=== PATIENT | female | born 1990 | race African-American/Black ===

== ENCOUNTER 2020-07-06 11:00 | Emergency (ER) | payer OTHER ==
[~2020-07-06] VITALS: Ht 160 cm; Wt 86.0 kg
[2020-07-06] MEDS ORDERED: KETOROLAC TROMETHAMINE 10 MG TABLET PO ONE (11:45)
[2020-07-06 13:01] VITALS: BP 116/68
== END 2020-07-06 13:29 | disposition home or self-care (01) ==
LOC: EMS 11:06
DX: S63.612A Unspecified sprain of right middle finger, initial encounter (principal); K02.9 Dental caries, unspecified; Y04.0XXA Assault by unarmed brawl or fight, initial encounter; Y93.89 Activity, other specified; Y92.89 Other specified places as the place of occurrence of the external cause; Y99.8 Other external cause status